=== PATIENT | female | born 1940 | race Caucasian/White ===

== ENCOUNTER 2016-12-17 08:38 | Inpatient (IN) | payer MEDICARE ==
[~2016-12-17] VITALS: Ht 162.5 cm; Wt 56.0 kg
[~2016-12-17 08:38] MED LIST: AMBIEN5 MG PO; DURAGESIC12.5 MCG/H TD; FENTANYL25 MCG/HR TD; MACROBID100 M1 PO; OXYCONTIN10 MG PO; REGLAN5 MG/ML IV; ROCEPHIN1 GM/50 M1 IV; ROXICODONE5 MG PO; Synthroid,Levo50 MCG PO; TIMOPTIC 0.5% 55 ML OU; TRAMADOL HCL50 MG PO; TRAVATAN INTRAOC
[2016-12-17] MEDS ORDERED: TRAVATAN Z 2.52.5 ML OU (08:53)
[2016-12-17 09:08] LABS: BASO # 0.1 10*3/uL (0.0-0.1); BASO % 1.4 % (0.0-1.0); EOS % 0.2 % (1.0-4.0); HEMATOCRIT 37.4 % (37.0-47.0); HEMOGLOBIN 12.7 g/dl (12.0-16.0); LYMPH # 1.6 10*3/uL (1.3-4.4); LYMPH % 36.4 % (27.0-41.0); MEAN CELL VOLUME 94.9 fl (81.0-99.0); MEAN CORPUSCULAR HGB 32.2 pg (27.0-31.0); MEAN PLATELET VOLUME 8.7 fl (9.6-12.3); MONO # 0.5 10*3/uL (0.1-1.0); MONO % 10.6 % (3.0-9.0); NEUT # 2.3 10*3/uL (2.3-7.9); NEUT % 51.4 % (47.0-73.0); PLATELET COUNT AUTOMATED 281 10*3/uL (130-400); RED BLOOD COUNT 3.94 10*6/uL (4.10-5.10); RED CELL DISTRI WIDTH 13.2 % (0-14.5); WHITE BLOOD COUNT 4.4 10*3/uL (4.8-10.8)
[2016-12-17 09:18] LABS: PROTHROMBIN TIME 10.6 SECONDS (9.0-12.4)
[2016-12-17 09:27] LABS: ALBUMIN 3.4 gm/dl (3.1-4.5); ALKALINE PHOSPHATASE 76 U/L (45-117); BILIRUBIN, TOTAL 0.4 mg/dl (0.2-1.0); BUN 11 mg/dl (7-24); CARBON DIOXIDE 29 mmol/L (21-32); CHLORIDE 100 mmol/L (98-107); CPK 41 U/L (26-192); EST GLOM FILT AFRICAN AMERICAN > 60 ml/min; GLUCOSE 104 mg/dL (65-99); MAGNESIUM 2.2 mg/dL (1.5-2.1); POTASSIUM 4.4 mmol/L (3.5-5.1); SGOT/AST 14 IU/L (3-35); SGPT/ALT 20 U/L (12-78); SODIUM 136 mmol/L (136-145)
[2016-12-17 09:28] LABS: C-REACTIVE PROTEIN < 0.29 MG/DL (0-0.3); TROPONIN I < 0.015 ng/ml (<0.045)
[2016-12-17 10:22] LABS: BILIRUBIN NEGATIVE (NEGATIVE); BLOOD NEGATIVE (NEGATIVE); CLARITY SL CLOUDY (CLEAR); COLOR YELLOW (YELLOW); GLUCOSE NEGATIVE (NEGATIVE); KETONE NEGATIVE (NEGATIVE); LEUKO ESTERASE 2+ (NEGATIVE); NITRITE NEGATIVE (NEGATIVE); PH 7.5 (5.0-9.0); PROTEIN NEGATIVE (NEGATIVE); UROBILINOGEN 0.2 E.U./dl (0.2-1.0)
[2016-12-17 10:41] LABS: BACTERIA 3+; URINE REFLEX COMMENT YES (NO); WBC 51-100 wbc/hpf (0-5)
[2016-12-17 18:00] LABS: CKMB 0.9 ng/ml (0.5-3.6)
[2016-12-17 18:06] LABS: CPK 56 U/L (26-192); TROPONIN I < 0.015 ng/ml (<0.045)
[2016-12-18 00:58] LABS: CKMB 1.1 ng/ml (0.5-3.6); CPK 58 U/L (26-192)
[2016-12-18 01:00] LABS: TROPONIN I < 0.015 ng/ml (<0.045)
[2016-12-18 06:18] LABS: BASO # 0.1 10*3/uL (0.0-0.1); EOS % 0.4 % (1.0-4.0); HEMATOCRIT 38.4 % (37.0-47.0); HEMOGLOBIN 12.9 g/dl (12.0-16.0); LYMPH # 2.2 10*3/uL (1.3-4.4); MEAN CELL VOLUME 94.8 fl (81.0-99.0); MEAN CORPUSCULAR HGB 31.9 pg (27.0-31.0); MEAN CORPUSCULAR HGB CONC 33.6 g/dl (33.0-37.0); MEAN PLATELET VOLUME 8.3 fl (9.6-12.3); MONO # 0.6 10*3/uL (0.1-1.0); MONO % 11.6 % (3.0-9.0); NEUT # 2.2 10*3/uL (2.3-7.9); NEUT % 43.8 % (47.0-73.0); PLATELET COUNT AUTOMATED 274 10*3/uL (130-400); RED BLOOD COUNT 4.05 10*6/uL (4.10-5.10); RED CELL DISTRI WIDTH 13.3 % (0-14.5)
[2016-12-18 06:31] LABS: CKMB 0.8 ng/ml (0.5-3.6); CPK 49 U/L (26-192); TROPONIN I < 0.015 ng/ml (<0.045)
[2016-12-18 06:34] LABS: HEMOGLOBIN A1c 5.6 % (4.8-5.6)
[2016-12-18 06:54] LABS: PROTHROMBIN TIME 10.6 SECONDS (9.0-12.4)
[2016-12-18 06:56] LABS: ALBUMIN 3.4 gm/dl (3.1-4.5); ALKALINE PHOSPHATASE 66 U/L (45-117); BILIRUBIN, TOTAL 0.4 mg/dl (0.2-1.0); BUN 11 mg/dl (7-24); CARBON DIOXIDE 28 mmol/L (21-32); CHLORIDE 101 mmol/L (98-107); CHOLESTEROL 174 mg/dL (<200); EST GLOM FILT AFRICAN AMERICAN > 60 ml/min; GLUCOSE 89 mg/dL (65-99); HDL CHOLESTEROL 74 mg/dl (40-60); LDL CHOLESTEROL 77 mg/dL (9-159); MAGNESIUM 2.3 mg/dL (1.5-2.1); PHOSPHOROUS 3.6 mg/dL (2.5-4.9); POTASSIUM 5.3 mmol/L (3.5-5.1); SGOT/AST 13 IU/L (3-35); SGPT/ALT 18 U/L (12-78); SODIUM 138 mmol/L (136-145); TRIGLYCERIDES 113 mg/dl (<150); VLDL CHOLESTEROL 23 mg/dL (6-40)
[2016-12-18 07:01] LABS: FREE T4 0.96 ng/dl (0.76-1.46)
[2016-12-18 07:30] LABS: FOLIC ACID 21.03 ng/mL (>5.38); VITAMIN D, 25-HYDROXY 25.4 ng/mL (30-100)
[2016-12-18] MEDS ORDERED: MECLIZINE HCL25 M2 PO (10:28)
[2016-12-18] MEDS ORDERED: ZOFRAN 4 MG ED2 TAB PO (10:28)
[2016-12-18] MEDS ORDERED: MACROBID100 M1 PO (10:28)
== END 2016-12-18 11:03 | disposition home or self-care (01) | DRG 690 ==
LOC: ED 08:38 → EDHOLD 12:15 → 4E 12:53
PROVIDERS: Emergency Medicine; Hospitalist
DX: N30.00 Acute cystitis without hematuria (principal); E03.9 Hypothyroidism, unspecified; R42 Dizziness and giddiness; Z85.3 Personal history of malignant neoplasm of breast; Z88.5 Allergy status to narcotic agent; Z88.0 Allergy status to penicillin; Z88.2 Allergy status to sulfonamides; H40.9 Unspecified glaucoma; G47.00 Insomnia, unspecified

== ENCOUNTER → 2017-03-10 | Outpatient (CLI) | payer MEDICARE ==
[~2017-03-10] MED LIST changes: +MECLIZINE HCL25 M2 PO; +TRAVATAN Z 2.52.5 ML OU; +ZOFRAN 4 MG ED2 TAB PO
[2017-03-10 09:12] LABS: BUN 12 mg/dl (7-24); CARBON DIOXIDE 31 mmol/L (21-32); CHLORIDE 102 mmol/L (98-107); EST GLOM FILT AFRICAN AMERICAN > 60 ml/min; GLUCOSE 84 mg/dL (65-99); POTASSIUM 4.3 mmol/L (3.5-5.1); SODIUM 138 mmol/L (136-145)
== END | disposition home or self-care (01) ==
LOC: LAB 08:13
PROVIDERS: Urology
DX: N31.9 Neuromuscular dysfunction of bladder, unspecified (principal)

== ENCOUNTER → 2017-08-05 | Outpatient (CLI) | payer MEDICARE | END | disposition home or self-care (01) | LOC: RAD 10:50 | DX: Z13.820 Encounter for screening for osteoporosis (principal); Z90.710 Acquired absence of both cervix and uterus; Z78.0 Asymptomatic menopausal state; Z85.3 Personal history of malignant neoplasm of breast ==

== ENCOUNTER 2019-10-17 19:30 | Emergency (ER) | payer OTHER ==
[~2019-10-17] VITALS: Ht 162.5 cm; Wt 55.3 kg
== END 2019-10-17 22:38 | disposition home or self-care (01) ==
LOC: ED 19:30
DX: M79.642 Pain in left hand (principal); W01.0XXA Fall on same level from slipping, tripping and stumbling without subsequent striking against object, initial encounter; Y93.89 Activity, other specified; Y92.89 Other specified places as the place of occurrence of the external cause; Y99.8 Other external cause status

== ENCOUNTER → 2020-03-25 | Outpatient (CLI) | payer OTHER ==
[2020-03-25 08:50] LABS: BASO # 0.1 10*3/uL (0.0-0.1); BASO % 1.5 % (0.0-1.0); EOS # 0.1 10*3/uL (0.0-0.4); EOS % 1.5 % (1.0-4.0); LYMPH # 2.2 10*3/uL (1.3-4.4); LYMPH % 47.5 % (27.0-41.0); MEAN CELL VOLUME 97.1 fl (81.0-99.0); MEAN CORPUSCULAR HGB 32.3 pg (27.0-31.0); MEAN CORPUSCULAR HGB CONC 33.3 g/dl (33.0-37.0); MEAN PLATELET VOLUME 8.9 fl (9.6-12.3); MONO # 0.5 10*3/uL (0.1-1.0); MONO % 9.9 % (3.0-9.0); NEUT # 1.8 10*3/uL (2.3-7.9); NEUT % 39.4 % (47.0-73.0); PLATELET COUNT AUTOMATED 245 10*3/uL (130-400); RED BLOOD COUNT 4.12 10*6/uL (4.10-5.10); RED CELL DISTRI WIDTH 13.5 % (0-14.5); RETICULOCYTE % 1.11 % (0.50-2.50); WHITE BLOOD COUNT 4.5 10*3/uL (4.8-10.8)
[2020-03-25 09:32] LABS: ALBUMIN 3.7 gm/dl (3.1-4.5); BUN 11 mg/dl (7-24); CHLORIDE 102 mmol/L (98-107); CHOLESTEROL 184 mg/dL (<200); CREATININE 0.77 mg/dL (0.55-1.02); GAMMA GLUTAMYL TRANSPEPTIDASE 4 U/L (5-55); IRON 111 ug/dL (50-170); SGOT/AST 14 IU/L (3-35); SGPT/ALT 16 U/L (12-78); SODIUM 133 mmol/L (136-145); TOTAL PROTEIN 6.4 gm/dL (6.4-8.2); TRIGLYCERIDES 95 mg/dl (<150); URIC ACID 3.3 mg/dL (2.6-6.0); VLDL CHOLESTEROL 19 mg/dL (6-40)
[2020-03-25 09:41] LABS: ALKALINE PHOSPHATASE 84 U/L (45-117); HDL CHOLESTEROL 80 mg/dl (40-60); LDL CHOLESTEROL 85 mg/dL (9-159); T3 UPTAKE 34 % (31-39); THYROXINE (T4) TOTAL 7.2 ug/dl (4.8-13.9); TOTAL IRON BINDING CAPACITY 268 ug/dl (250-450)
[2020-03-25 10:30] LABS: FERRITIN 83.8 ng/mL (10.0-291.0); VITAMIN D, 25-HYDROXY 34.9 ng/mL (30-100)
[2020-03-25 10:33] LABS: CLARITY CLEAR (CLEAR); COLOR YELLOW (YELLOW)
[2020-03-25 10:34] LABS: BILIRUBIN NEGATIVE (NEGATIVE); BLOOD TRACE-INTACT (NEGATIVE); GLUCOSE NEGATIVE (NEGATIVE); KETONE NEGATIVE (NEGATIVE); LEUKO ESTERASE 2+ (NEGATIVE); NITRITE NEGATIVE (NEGATIVE); UROBILINOGEN 0.2 E.U./dl (0.2-1.0)
[2020-03-25 10:36] LABS: BACTERIA 1+; WBC 16-20 wbc/hpf (0-5)
[2020-03-26 07:15] LABS: RHEUMATOID ARTHRITIS FACTOR <10.0 IU/mL (0.0-13.9)
[2020-03-26 16:07] LABS: ANTI-DSDNA ANTIBODIES <1 IU/mL (0-9)
== END | disposition home or self-care (01) ==
LOC: LAB 08:13
PROVIDERS: Family Medicine
DX: E55.9 Vitamin D deficiency, unspecified (principal); R79.89 Other specified abnormal findings of blood chemistry; R53.83 Other fatigue; E78.5 Hyperlipidemia, unspecified

== ENCOUNTER → 2021-03-28 | Outpatient (CLI) | payer OTHER ==
[2021-03-28 12:01] LABS: BILIRUBIN Negative (Negative); BLOOD 2+ (Negative); CLARITY Turbid (Clear); COLOR Yellow (Yellow); GLUCOSE Negative (Negative); KETONE Negative (Negative); LEUKO ESTERASE 3+ (Negative); NITRITE Positive (Negative)
[2021-03-28 12:09] LABS: BACTERIA 4+; WBC TNTC wbc/hpf (0-5)
== END | disposition home or self-care (01) ==
LOC: LAB 11:34
PROVIDERS: ATTEND Family Medicine
DX: R30.0 Dysuria (principal)

== ENCOUNTER → 2021-07-14 | Outpatient (CLI) | payer OTHER ==
[2021-07-14 12:42] LABS: BASO # 0.1 10*3/uL (0.0-0.1); HEMATOCRIT 40.4 % (37.0-47.0); LYMPH # 1.7 10*3/uL (1.3-4.4); LYMPH % 33.4 % (27.0-41.0); MEAN CELL VOLUME 98.1 fl (81.0-99.0); MEAN CORPUSCULAR HGB 32.5 pg (27.0-31.0); MEAN CORPUSCULAR HGB CONC 33.2 g/dl (33.0-37.0); MONO # 0.5 10*3/uL (0.1-1.0); MONO % 9.7 % (3.0-9.0); NEUT # 2.8 10*3/uL (2.3-7.9); NEUT % 55.7 % (47.0-73.0); PLATELET COUNT AUTOMATED 322 10*3/uL (130-400); RED BLOOD COUNT 4.12 10*6/uL (4.10-5.10); RED CELL DISTRI WIDTH 14.1 % (0-14.5); RETICULOCYTE % 1.18 % (0.50-2.50); WHITE BLOOD COUNT 4.9 10*3/uL (4.8-10.8)
[2021-07-14 12:44] LABS: BILIRUBIN Negative (Negative); BLOOD Negative (Negative); CLARITY Clear (Clear); COLOR Yellow (Yellow); GLUCOSE Negative (Negative); KETONE Negative (Negative); LEUKO ESTERASE 3+ (Negative); NITRITE Negative (Negative); PH 6.5 (4.5-8.0); SPECIFIC GRAVITY 1.015 (1.001-1.030)
[2021-07-14 12:59] LABS: ALBUMIN 3.6 gm/dl (3.1-4.5); ALKALINE PHOSPHATASE 87 U/L (45-117); BUN 15 mg/dl (7-24); CHLORIDE 99 mmol/L (98-107); CHOLESTEROL 195 mg/dL (<200); CREATININE 0.76 mg/dL (0.55-1.02); LDL CHOLESTEROL 92 mg/dL (9-159); POTASSIUM 4.3 mmol/L (3.5-5.1); SGOT/AST 13 IU/L (3-35); SGPT/ALT 19 U/L (12-78); SODIUM 128 mmol/L (136-145); T3 UPTAKE 41 % (31-39); TOTAL IRON BINDING CAPACITY 427 ug/dl (250-450); TOTAL PROTEIN 6.6 gm/dL (6.4-8.2); TRIGLYCERIDES 92 mg/dl (<150); URIC ACID 3.7 mg/dL (2.6-6.0)
[2021-07-14 13:04] LABS: BACTERIA 2+; EPITHELIAL CELLS 21-30; WBC TNTC wbc/hpf (0-5)
[2021-07-14 13:06] LABS: IRON 122 ug/dL (50-170); THYROXINE (T4) TOTAL 9.1 ug/dl (4.8-13.9)
[2021-07-14 13:09] LABS: GAMMA GLUTAMYL TRANSPEPTIDASE < 3 U/L (5-55)
[2021-07-14 13:18] LABS: FERRITIN 67.8 ng/mL (10.0-291.0); VITAMIN D, 25-HYDROXY 69.3 ng/mL (30-100)
[2021-07-15 08:08] LABS: RHEUMATOID ARTHRITIS FACTOR <10.0 IU/mL (0.0-13.9)
[2021-07-15 14:10] LABS: ANTI-DSDNA ANTIBODIES <1 IU/mL (0-9)
== END | disposition home or self-care (01) ==
LOC: LAB 11:18
PROVIDERS: ATTEND Family Medicine
DX: E55.9 Vitamin D deficiency, unspecified (principal); R79.89 Other specified abnormal findings of blood chemistry; E78.5 Hyperlipidemia, unspecified; R53.83 Other fatigue

== ENCOUNTER → 2022-02-18 | Outpatient (CLI) | payer OTHER ==
[2022-02-18 12:06] LABS: BASO # 0.1 10*3/uL (0.0-0.1); BASO % 1.3 % (0.0-1.0); HEMATOCRIT 41.7 % (37.0-47.0); LYMPH # 1.3 10*3/uL (1.3-4.4); LYMPH % 28.8 % (27.0-41.0); MEAN CELL VOLUME 94.8 fl (81.0-99.0); MEAN CORPUSCULAR HGB 32.3 pg (27.0-31.0); MEAN CORPUSCULAR HGB CONC 34.1 g/dl (33.0-37.0); MEAN PLATELET VOLUME 8.8 fl (9.6-12.3); MONO # 0.5 10*3/uL (0.1-1.0); MONO % 10.5 % (3.0-9.0); NEUT # 2.7 10*3/uL (2.3-7.9); NEUT % 59.2 % (47.0-73.0); PLATELET COUNT AUTOMATED 268 10*3/uL (130-400); RED CELL DISTRI WIDTH 13.2 % (0-14.5); WHITE BLOOD COUNT 4.5 10*3/uL (4.8-10.8)
[2022-02-18 12:09] LABS: BILIRUBIN Negative (Negative); BLOOD Negative (Negative); CLARITY Cloudy (Clear); COLOR Yellow (Yellow); GLUCOSE Negative (Negative); KETONE Negative (Negative); LEUKO ESTERASE 3+ (Negative); NITRITE Negative (Negative); PH 6.5 (4.5-8.0); SPECIFIC GRAVITY 1.015 (1.001-1.030)
[2022-02-18 12:24] LABS: ALKALINE PHOSPHATASE 93 U/L (45-117); BUN 11 mg/dl (7-24); CHLORIDE 99 mmol/L (98-107); CHOLESTEROL 218 mg/dL (<200); CREATININE 0.85 mg/dL (0.55-1.02); GAMMA GLUTAMYL TRANSPEPTIDASE 8 U/L (5-55); IRON 131 ug/dL (50-170); LDL CHOLESTEROL 86 mg/dL (9-159); POTASSIUM 4.6 mmol/L (3.5-5.1); SGOT/AST 15 IU/L (3-35); SGPT/ALT 19 U/L (12-78); SODIUM 130 mmol/L (136-145); T3 UPTAKE 36 % (31-39); THYROXINE (T4) TOTAL 12.3 ug/dl (4.8-13.9); TOTAL IRON BINDING CAPACITY 331 ug/dl (250-450); TOTAL PROTEIN 7.2 gm/dL (6.4-8.2); TRIGLYCERIDES 73 mg/dl (<150); URIC ACID 3.4 mg/dL (2.6-6.0)
[2022-02-18 12:28] LABS: BACTERIA TRACE; WBC TNTC wbc/hpf (0-5)
[2022-02-18 17:05] LABS: VITAMIN D, 25-HYDROXY 54.1 ng/mL (30-100)
[2022-02-19 06:08] LABS: RHEUMATOID FACTOR <10.0 IU/mL (<14.0)
[2022-02-19 14:09] LABS: ANTI-DSDNA ANTIBODIES <1 IU/mL (0-9)
== END | disposition home or self-care (01) ==
LOC: LAB 11:33
PROVIDERS: ATTEND Family Medicine
DX: E78.5 Hyperlipidemia, unspecified (principal); R74.8 Abnormal levels of other serum enzymes; R79.89 Other specified abnormal findings of blood chemistry; R53.83 Other fatigue; E55.9 Vitamin D deficiency, unspecified

== ENCOUNTER → 2022-03-03 | Outpatient (CLI) | payer OTHER | END | disposition home or self-care (01) | LOC: RAD 13:07 | PROVIDERS: ATTEND Family Medicine | DX: M85.88 Other specified disorders of bone density and structure, other site (principal); M81.0 Age-related osteoporosis without current pathological fracture; N95.1 Menopausal and female climacteric states ==

== ENCOUNTER → 2022-03-09 | Outpatient (CLI) | payer OTHER | END | disposition home or self-care (01) | LOC: US 12:42 | PROVIDERS: ATTEND Family Medicine | DX: I25.10 Atherosclerotic heart disease of native coronary artery without angina pectoris (principal); R09.89 Other specified symptoms and signs involving the circulatory and respiratory systems ==

== ENCOUNTER → 2023-06-24 | Outpatient (CLI) | payer OTHER | END | disposition home or self-care (01) | LOC: US 01:03 | PROVIDERS: ATTEND Family Medicine | DX: S80.12XD Contusion of left lower leg, subsequent encounter (principal); M79.605 Pain in left leg; X58.XXXD Exposure to other specified factors, subsequent encounter ==

== ENCOUNTER → 2023-08-09 | Outpatient (CLI) | payer OTHER ==
[2023-08-09 09:04] LABS: BILIRUBIN Negative (Negative); BLOOD Negative (Negative); CLARITY Clear (Clear); COLOR Yellow (Yellow); GLUCOSE Negative (Negative); KETONE Negative (Negative); LEUKO ESTERASE 2+ (Negative); NITRITE Negative (Negative)
[2023-08-09 09:22] LABS: BASO # 0.1 10*3/uL (0.0-0.1); BASO % 1.4 % (0.0-1.0); LYMPH # 1.6 10*3/uL (1.3-4.4); LYMPH % 38.7 % (27.0-41.0); MEAN CELL VOLUME 97.2 fl (81.0-99.0); MEAN CORPUSCULAR HGB 32.2 pg (27.0-31.0); MEAN CORPUSCULAR HGB CONC 33.2 g/dl (33.0-37.0); MEAN PLATELET VOLUME 9.3 fl (9.6-12.3); MONO # 0.5 10*3/uL (0.1-1.0); MONO % 12.2 % (3.0-9.0); NEUT % 46.5 % (47.0-73.0); PLATELET COUNT AUTOMATED 273 10*3/uL (130-400); RED BLOOD COUNT 4.22 10*6/uL (4.10-5.10); RED CELL DISTRI WIDTH 13.7 % (0-14.5); RETICULOCYTE % 1.23 % (0.50-2.50); WHITE BLOOD COUNT 4.2 10*3/uL (4.8-10.8)
[2023-08-09 09:33] LABS: BACTERIA 1+; WBC 21-30 wbc/hpf (0-5)
[2023-08-09 09:48] LABS: ALKALINE PHOSPHATASE 81 U/L (46-116); BUN 11 mg/dl (9-23); CHLORIDE 101 mmol/L (98-107); CHOLESTEROL 194 mg/dL (<200); GAMMA GLUTAMYL TRANSPEPTIDASE 9 U/L (0-73); LDL CHOLESTEROL 96 mg/dL (9-159); POTASSIUM 4.2 mmol/L (3.4-5.1); T3 UPTAKE 26.2 % (22.4-36.7); TOTAL PROTEIN 6.3 gm/dL (6.0-8.0); TRIGLYCERIDES 68 mg/dl (<150)
[2023-08-09 09:51] LABS: SGPT/ALT < 7 U/L (5-49)
[2023-08-09 10:31] LABS: VITAMIN D, 25-HYDROXY 69.3 ng/mL (30-100)
== END | disposition home or self-care (01) ==
LOC: LAB 08:16
PROVIDERS: ATTEND Family Medicine
DX: E78.5 Hyperlipidemia, unspecified (principal); R53.83 Other fatigue; R79.89 Other specified abnormal findings of blood chemistry; E55.9 Vitamin D deficiency, unspecified

== ENCOUNTER → 2024-05-02 | Outpatient (CLI) | payer OTHER ==
[2024-05-02 09:05] LABS: BASO # 0.1 10*3/uL (0.0-0.1); BASO % 1.1 % (0.0-1.0); EOS # 0.1 10*3/uL (0.0-0.4); EOS % 1.4 % (1.0-4.0); HEMATOCRIT 40.9 % (37.0-47.0); MEAN CELL VOLUME 96.5 fl (81.0-99.0); MEAN CORPUSCULAR HGB 32.3 pg (27.0-31.0); MEAN CORPUSCULAR HGB CONC 33.5 g/dl (33.0-37.0); MEAN PLATELET VOLUME 9.1 fl (9.6-12.3); MONO # 0.5 10*3/uL (0.1-1.0); NEUT # 1.8 10*3/uL (2.3-7.9); NEUT % 41.3 % (47.0-73.0); PLATELET COUNT AUTOMATED 247 10*3/uL (130-400); RED BLOOD COUNT 4.24 10*6/uL (4.10-5.10); RED CELL DISTRI WIDTH 13.3 % (0-14.5); RETICULOCYTE % 1.25 % (0.50-2.50); WHITE BLOOD COUNT 4.4 10*3/uL (4.8-10.8)
[2024-05-02 09:30] LABS: BILIRUBIN Negative (Negative); BLOOD Negative (Negative); CLARITY Clear (Clear); COLOR Yellow (Yellow); GLUCOSE Negative (Negative); KETONE Negative (Negative); LEUKO ESTERASE 3+ (Negative); NITRITE Negative (Negative); PH 6.5 (4.5-8.0); UROBILINOGEN 0.2 E.U./dl (0.0-1.0)
[2024-05-02 09:37] LABS: ALKALINE PHOSPHATASE 84 U/L (46-116); BUN 11 mg/dl (9-23); CHLORIDE 102 mmol/L (98-107); CHOLESTEROL 185 mg/dL (<200); LDL CHOLESTEROL 91 mg/dL (9-159); SGPT/ALT 8 U/L (5-49); T3 UPTAKE 37.8 % (22.4-36.7); THYROXINE (T4) TOTAL 6.8 ug/dl (4.5-10.9); TOTAL PROTEIN 6.2 gm/dL (6.0-8.0); TRIGLYCERIDES 75 mg/dl (<150)
[2024-05-02 11:54] LABS: BACTERIA 2+; WBC 41-50 wbc/hpf (0-5)
== END | disposition home or self-care (01) ==
LOC: LAB 08:23
PROVIDERS: ATTEND Family Medicine
DX: R79.89 Other specified abnormal findings of blood chemistry (principal); R53.83 Other fatigue; E78.5 Hyperlipidemia, unspecified; E55.9 Vitamin D deficiency, unspecified

== ENCOUNTER → 2024-05-03 | Outpatient (CLI) | payer OTHER ==
[2024-05-03 11:49] LABS: VITAMIN D, 25-HYDROXY 86.6 ng/mL (30-100)
== END | disposition home or self-care (01) ==
LOC: LAB 10:15
PROVIDERS: ATTEND Family Medicine
DX: R53.83 Other fatigue (principal); R79.89 Other specified abnormal findings of blood chemistry; E78.5 Hyperlipidemia, unspecified; E55.9 Vitamin D deficiency, unspecified

== ENCOUNTER → 2024-06-12 | Outpatient (CLI) | payer OTHER | END | disposition home or self-care (01) | LOC: RAD 06-11 08:45 | PROVIDERS: ATTEND Family Medicine | DX: M81.0 Age-related osteoporosis without current pathological fracture (principal); N95.1 Menopausal and female climacteric states ==